=== PATIENT | male | born 1975 | race Caucasian/White ===

== ENCOUNTER 2020-02-18 20:45 | Emergency (ER) | payer SELFPAY ==
[2020-02-18] MEDS ORDERED: NALOXONE 2MG/2ML SYRINGE (J2310 PER 1MG) As Ordered ONE (20:59)
[2020-02-18] MEDS ORDERED: NALOXONE 2MG/2ML SYRINGE (J2310 PER 1MG) ONE (21:00)
== END 2020-02-18 21:10 | disposition home or self-care (01) ==
LOC: M ED 20:45
DX: F11.129 Opioid abuse with intoxication, unspecified (principal); F10.129 Alcohol abuse with intoxication, unspecified
CPT/HCPCS: 96374; 96376; 99284; J2310

== ENCOUNTER 2021-05-24 19:16 | Emergency (ER) | payer MEDICAID ==
[~2021-05-24] VITALS: Ht 162.6 cm; Wt 72.7 kg
--- OUTSIDE RECORDS SUMMARY | 2021-05-24 19:25 | CCD ---
Author Author [facility] Organization [facility] Address Unknown Phone Unavailable Care Team Providers Care R And D Lab Technician Name Role Phone Ayesha Pardo Unavailable PROBLEMS Type Condition ICD9-CM Code [id number] Code Onset Dates Condition S tatus W/U Status Risk SNOMED Code Notes Problem Psychophysiological insomnia F51.04 Active confirme d 942006436 Problem Onychomycosis B35.1 Active confirmed 186101 008 Problem Alcohol abuse F10.10 Active confirmed 562222 05 Problem Tinea pedis of both feet B35.3 Active confirmed 3679295 Problem Rash and nonspecific skin eruption R21 Active co nfirmed 705232758 Problem Hx of hepatitis C Z86.19 Active confirmed 93 [id number] Problem Pedal edema R60.0 Active confirmed 91040756 9 Problem Abdominal bloating R14.0 Active confirmed 1 [id number] ALLERGIES No Known Allergies ENCOUNTERS from 1977 to 2021-04-08 Encounter Location Date Provider Diagnosis [facility] [place] [address] [facility] [address] [phone] [place] [address] Mar, Sairasaurabh Starrah IMMUNIZATIONS No Information SOCIAL HISTORY Tobacco Use: Social History Observation Description Date Details (start date - stop date) Current Smoker Sex Assigned At : Social History Observation Description Sex Assigned At Unknown Education: Question Answer Notes Level of Education: Finished High School Language: Question Answer Notes Languages spoken: Australian Christianity: Question Answer Notes Christianity 08 Rastafarian Sexual Hx: Question Answer Notes Had sex in the last 12 months (vaginal, oral, or anal)? No Have you ever had an STD? No Alcohol Screening: Question Answer Notes Did you have a drink containing alcohol in the past year? Ye s Points 1 Interpretation Negative How many drinks did you have on a typica l day when you were drinking in the past year? 1 or 2 (0 points) How often did you have a drink containing alcohol in t he past year? Monthly or less (1 point) Tobacco Use: Question Answer Notes Are you a: current smoker REASON FOR REFERRAL No Information VITAL SIGNS No information MEDICATIONS Medication SIG (Take, Route, Frequency, Duration) Notes Start Da te End Date Status Abilify 5 MG 1 tablet Orally Once a day for 30 day(s) 04 2020 Active hydrOXYzine HCl 25 MG 1 tablet as needed for insomnia Orally qhs for 30 day(s) Active PROCEDURES No Information RESULTS No Results REASON FOR VISIT concerns for patient MEDICAL (GENERAL) HISTORY Type Description Date Medical History History of poly substance ab use with heroin, vicodin, cocaine, meth, 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 Medical History Hx hepatitis C spontaneous remission Medical History Tinea pedis Medical History Morgellons disease Surgical History No Surgical history information Goals Section No Information Health Concerns No Information MEDICAL EQUIPMENT No Information MENTAL STATUS No Information FUNCTIONAL STATUS No Information ASSESSMENTS No Information PLAN OF TREATMENT Medication Medication Name Sig Start Date Stop Date Abilify 5 MG 1 tablet Orally Once a day for 30 day(s) Apr, hydrOXYzine HCl 25 MG 1 tablet as needed for insomnia Orally qhs for 30 day(s) Next Appt Details Provider Name:Ayesha Pardo, 2020-10-2 8 07:30:00 AM, [address] [facility], , [place], [place], [facility], Insurance Providers Payer Name Payer Address Payer Phone Insured Name Patient Relati onship to Insured Coverage Start Date Coverage End Date [facility] [address] [facility] [phone] MARK ROBLES self
--- OUTSIDE RECORDS SUMMARY | 2021-05-24 19:25 | CCD ---
Author Author [facility] Organization [facility] Address Unknown Phone Unavailable Care Team Providers Care Assistant Designer Name Role Phone Ayesha Pardo Unavailable PROBLEMS Type Condition ICD9-CM Code [id number] Code Onset Dates Condition S tatus W/U Status Risk SNOMED Code Notes Problem Psychophysiological insomnia F51.04 Active confirme d 926133729 Problem Onychomycosis B35.1 Active confirmed 329047 008 Problem Alcohol abuse F10.10 Active confirmed 158436 05 Problem Tinea pedis of both feet B35.3 Active confirmed 1728303 Problem Rash and nonspecific skin eruption R21 Active co nfirmed 551990860 Problem Hx of hepatitis C Z86.19 Active confirmed 93 679806295397 Problem Pedal edema R60.0 Active confirmed 34690366 9 Problem Abdominal bloating R14.0 Active confirmed 1 [id number] ALLERGIES No Known Allergies ENCOUNTERS from 1975 to 2021-04-30 Encounter Location Date Provider Diagnosis [address] [phone] [place] [address] Apr, Sairasaurabh Starrah IMMUNIZATIONS No Information SOCIAL HISTORY Tobacco Use: Social History Observation Description Date Details (start date - stop date) Current Smoker Sex Assigned At : Social History Observation Description Sex Assigned At Unknown Education: Question Answer Notes Level of Education: Finished High School Language: Question Answer Notes Languages spoken: Mohawk Samaritan: Question Answer Notes Samaritan 08 Mosque Sexual Hx: Question Answer Notes Had sex [...] Once a day for 30 day(s) 04 O , 2020 Active hydrOXYzine HCl 25 MG 1 tablet as needed for insomnia Orally qhs for 30 day(s) Active PROCEDURES No Information RESULTS No Results REASON FOR VISIT ct scan MEDICAL (GENERAL) HISTORY Type Description Date Medical [...] day(s) Next Appt Details Provider Name:Ayesha Pardo, 2021-04-05 8 07:30:00 AM, [address] [place] [address], , [place], [address], Provider Name:Wanda Mccann, 2021-06-16 01 :30:00 PM, [address] [place] [address], , [place], [address], Insurance Providers Payer Name Payer Address Payer Phone Insured Name Patient Relati onship to Insured Coverage Start Date Coverage End Date [facility] [employer] [address] [facility] [phone] MARK ROBLES
--- OUTSIDE RECORDS SUMMARY | 2021-05-24 19:25 | CCD ---
Author Author [facility] Organization [facility] Address Unknown Phone Unavailable Care Team Providers Care Wood Craftsman Name Role Phone Ayesha Pardo Unavailable PROBLEMS Type Condition ICD9-CM Code BJB92-ES Code Onset Dates Condition S tatus W/U Status Risk SNOMED Code Notes Problem Psychophysiological insomnia F51.04 Active confirme d [id number] ALLERGIES No Known Allergies ENCOUNTERS from 1975 to 2021-04-01 Encounter Location Date Provider Diagnosis [facility] [address] [facility] [address] [phone] [place] [address] Mar, Sairalene Edvin IMMUNIZATIONS No Information SOCIAL HISTORY Tobacco Use: Social History Observation Description Date Details (start date - stop date) Current Smoker Sex Assigned At : Social History Observation Description Sex Assigned At Unknown Education: Question Answer Notes Level of Education: Finished High School Language: Question Answer Notes Languages spoken: Kyrgyz Advent: Question Answer Notes Advent 08 Jehovah'S Witness Sexual Hx: Question Answer Notes Had sex [...] Notes Start Da te End Date Status hydrOXYzine HCl 25 MG 1 tablet as needed for insomnia Orally qhs for 30 day(s) Mar, Active PROCEDURES No Information RESULTS No Results REASON FOR VISIT follow up MEDICAL (GENERAL) HISTORY Type Description Date Medical History History of poly substance ab use with heroin, vicodin, cocaine, meth, 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 Surgical History No Surgical history information Goals Section No Information Health Concerns No Information MEDICAL EQUIPMENT No Information MENTAL STATUS No Information FUNCTIONAL STATUS No Information ASSESSMENTS No Information PLAN OF TREATMENT Medication Medication Name Sig Start Date Stop Date hydrOXYzine HCl 25 MG 1 tablet as needed for insomnia Orally qhs for 30 day(s) Mar, Next Appt Details Provider Name:Ayesha Schultz Edvin, 2020-10-0 4 09:15:00 AM, [address] [place] [address], , [place], [place], [facility], Insurance Providers Payer Name Payer Address Payer Phone Insured Name Patient Relati onship to Insured Coverage Start Date Coverage End Date [facility]AN [facility] [address] [facility] [phone] MARK ROBLES self
--- OUTSIDE RECORDS SUMMARY | 2021-05-24 19:25 | CCD ---
Author Author [facility] Organization [facility] Address Unknown Phone Unavailable Care Team Providers Care Office Cashier Name Role Phone Ayesha Pardo Unavailable PROBLEMS Type Condition ICD9-CM Code [id number] Code Onset Dates Condition S tatus W/U Status Risk SNOMED Code Notes Problem Psychophysiological insomnia F51.04 Active confirme d 512384347 Problem Onychomycosis B35.1 Active confirmed 903884 008 Problem Alcohol abuse F10.10 Active confirmed 758451 05 Problem Tinea pedis of both feet B35.3 Active confirmed 0189795 Problem Rash and nonspecific skin eruption R21 Active co nfirmed 417035592 Problem Hx of hepatitis C Z86.19 Active confirmed 93 622645586635 Problem Pedal edema R60.0 Active confirmed 64758327 9 Problem Abdominal bloating R14.0 Active confirmed 1 91714389 ALLERGIES No Known Allergies ENCOUNTERS from 1977 to 2021-04-14 Encounter Location Date Provider Diagnosis [facility] [place] [address] [facility] [address] [phone] [place] [address] Apr, Sairasaurabh Starrah IMMUNIZATIONS No Information SOCIAL HISTORY Tobacco Use: Social History Observation Description Date Details (start date - stop date) Current Smoker Sex Assigned At : Social History Observation Description Sex Assigned At Unknown Education: Question Answer Notes Level of Education: Finished High School Language: Question Answer Notes Languages spoken: Martiniquais Pentecostal: Question Answer Notes Pentecostal 08 Hindu Sexual Hx: Question Answer Notes Had sex [...] Information RESULTS No Results REASON FOR VISIT No Information MEDICAL (GENERAL) HISTORY Type Description Date Medical [...] Name:Ayesha Pardo, 2020-10-2 8 07:30:00 AM, [address] [facility], , [place], [place], [facility], Insurance Providers Payer Name Payer Address Payer Phone Insured Name Patient Relati onship to Insured Coverage Start Date Coverage End Date [facility]AN [facility] [address] [facility] [phone] MARK ROBLES self
--- OUTSIDE RECORDS SUMMARY | 2021-05-24 19:25 | CCD ---
Author Author [facility] Organization [facility] Address Unknown Phone Unavailable Care Team Providers Care [place] Name Role Phone Antoine GREEN NP Unavailable Unavailable LAROCKAntoine NP Unavailable Unavailable LAROCKAntoine NP Unavailable Unavailable LAROCKAntoine NP Unavailable Unavailable LAROCKAntoine NP Unavailable Unavailable LAROCKAntoine NP Unavailable Unavailable LAROCKAntoine NP Unavailable Unavailable LAROCKAntoine NP Unavailable Unavailable LAROCKAntoine NP Unavailable Unavailable LAROCKAntoine NP Unavailable Unavailable LAROCKAntoine NP Unavailable Unavailable LAROCKAntoine NP Unavailable Unavailable LAROCKAntoine NP Unavailable Unavailable LAROCKAntoine NP Unavailable Unavailable LAROCKAntoine NP Unavailable Unavailable LAROCKAntoine NP Unavailable Unavailable LAROCKAntoine NP Unavailable Unavailable BHANUOCKAntoine NP Unavailable Unavailable BHANUOCKAntoine NP Unavailable Unavailable BHANUOCKAntoine NP Unavailable Unavailable BHANUOCKAntoine NP Unavailable Unavailable LAROCK, J MIKAELA POLICY DIRECTOR Unavailable Unavailable ANGELO, LISA PA Unavailable Unavailable ANGELO, LISA PA Unavailable Unavailable ANGELO, LISA PA Unavailable Unavailable ANGELO, LISA PA Unavailable Unavailable ANGELO, LISA PA Unavailable Unavailable ANGELO, LISA PA Unavailable Unavailable ANGELO, LISA PA Unavailable Unavailable ANGELO, LISA PA Unavailable Unavailable ANGELO, LISA PA Unavailable Unavailable ANGELO, LISA PA Unavailable Unavailable ANGELO, LISA PA Unavailable Unavailable ANGLEO, LISA PA Unavailable Unavailable ANGELO, LISA PA Unavailable Unavailable ANGELO, ILSA PA Unavailable Unavailable ANGELO, LISA PA Unavailable Unavailable ANGELO, LISA PA Unavailable Unavailable ANGELO, LISA PA Unavailable Unavailable ANGELO, LISA PA Unavailable Unavailable ANGELO, LSIA PA Unavailable Unavailable ANGELO, LISA PA Unavailable Unavailable ANGELO, LISA PA Unavailable Unavailable ANGELO, LISA PA Unavailable Unavailable ANGELO, LISA PA Unavailable Unavailable ANGELO, LISA PA Unavailable Unavailable ANGELO, LISA PA Unavailable Unavailable ANGELO, LISA PA Unavailable Unavailable ANGELO, LISA PA Unavailable Unavailable ANGELO, LISA PA Unavailable Unavailable ANGELO, LISA PA Unavailable Unavailable ANGELO, LISA PA Unavailable Unavailable ANGELO, LISA PA Unavailable Unavailable ANGELO, LISA PA Unavailable Unavailable ANGELO, LISA PA Unavailable Unavailable ANGELO, LISA PA Unavailable Unavailable ANGELO, LISA PA Unavailable Unavailable ANGELO, LISA PA Unavailable Unavailable Re-disclosure Warning The records that you are about to access may contain information from federally-assisted alcohol or drug abuse programs. If such information is present, then the following federally mandated warning applies: This information has been disclosed to you from records protected by federal confidentiality rules (42 CFR part 2). The federal rules prohibit you from making any further disclosure of this information unless further disclosure is expressly permitted by the written consent of the person to whom it pertains or as otherwise permitted by 42 CFR part 2. A general authorization for the release of medical or other information is NOT sufficient for this purpose. The Federal rules restrict any use of the information to criminally investigate or prosecute any alcohol or drug abuse patient.The records that you are about to access may contain highly sensitive health information, the redisclosure of which is protected by Article 27-F of the [place] State Public Health law. If you continue you may have access to information: Regarding HIV / AIDS; Provided by facilities licensed or operated by the [facility] Office of Mental Health; or Provided by the [facility] Office for People With Developmental Disabilities. If such information is present, then the following [facility] mandated warning applies: This information has been disclosed to you from confidential records which are protected by state law. State law prohibits you from making any further disclosure of this information without the specific written consent of the person to whom it pertains, or as otherwise permitted by law. Any unauthorized further disclosure in violation of state law may result in a fine or group home sentence or both. A general authorization for the release of medical or other information is NOT sufficient authorization for further disc losure. Family History Family Member Name Family Member Gender Family Member Status Date o f Status Description Data Source(s) Unknown Male Problem MEDENT ([facility], ) Encounters Encounter Providers Location Date Indications Data Source(s ) Unknown [address] [address] 05/14/2021 12:00:00 AM EST eCW1 ([facility]) Outpatient Attender: MIKAELA GREEN NP 04/05 08:12:14 AM EDT - 05/01/2021 08:46:08 AM EDT DocuTap ([facility] ) Unknown [address] [facility] [address] [address] 04/30/2021 12:00:00 AM EDT eCW1 ([facility]) Unknown [address] [facility] [place] [address] 04/09/2021 12:00:00 AM EDT eCW1 ([facility]) Outpatient [address] [address] 04/07/2021 12:00:00 AM EDT eCW1 ([facility]) Unknown [address] [address] [address] 04/07/2021 12:00:00 AM EDT eCW1 ([facility]) Unknown [address] [facility] [address] [address] 04/01/2021 12:00:00 AM EDT eCW1 ([facility]) [place] [address] [facility] [place] [address] 03/31/2021 12:00:00 AM EDT eCW1 ([facility]) [place] [address] [place] [address] 03/31/2021 12:00:00 AM EDT eCW1 ([facility]) Outpatient Attender: LISA slade 03/19/2021 06:35:00 PM EDT MEDENT ([facility]) Immunizations Vaccine Date Status Description Data Source(s) COVID-19 VACCINE Moderna 02/11/2021 12:00:00 AM EDT completed [facility] Vaccine Series Complete: YESThis Data wa s Submitted to [facility] [employer]. COVID-19 VACCINE Moderna 01/14/2021 12:00:00 AM EDT completed [facility] Vaccine Series Complete: NOThis Data was Submitted to [facility] [employer]. Medications Medication Brand Name Start Date Product Form Dose Route Admi nistrative Instructions Pharmacy Instructions Status Indications Reaction Description Data Source(s) aripiprazole 5 MG Oral Tablet [Abilify] Abilify 5 MG Abilify 5 MG 04/07/2021 12:00:00 AM EDT 1.0 {tablet} active Ab ilify 5 MG eCW1 ([facility]) aripiprazole 5 MG Oral Tablet [Abilify] Abilify 5 MG Abilify 5 MG 04/07/2021 12:00:00 AM EDT 1.0 {tablet} active Ab ilify 5 MG eCW1 ([facility]) aripiprazole 5 MG Oral Tablet [Abilify] Abilify 5 MG Abilify 5 MG 04/07/2021 12:00:00 AM EDT 1.0 {tablet} active Ab ilify 5 MG eCW1 ([facility]) aripiprazole 5 MG Oral Tablet [Abilify] Abilify 5 MG Abilify 5 MG 04/07/2021 12:00:00 AM EDT 1.0 {tablet} active Ab ilify 5 MG eCW1 ([facility]) aripiprazole 5 MG Oral Tablet [Abilify] Abilify 5 MG Abilify 5 MG 04/07/2021 12:00:00 AM EDT 1.0 {tablet} active Ab ilify 5 MG eCW1 ([facility]) aripiprazole 5 MG Oral Tablet [Abilify] Abilify 5 MG Abilify 5 MG 04/07/2021 12:00:00 AM EDT 1.0 {tablet} active Ab ilify 5 MG eCW1 ([facility]) aripiprazole 5 MG Oral Tablet [Abilify] Abilify 5 MG Abilify 5 MG 04/07/2021 12:00:00 AM EDT 1.0 {tablet} active Ab ilify 5 MG eCW1 ([facility]) Hydroxyzine Hydrochloride 25 MG Oral Tablet hydrOXYzin e HCl 25 MG hydrOXYzine HCl 25 MG 03/31/2021 12:00:00 AM EDT active hydrOXYzine HCl 25 MG eCW1 ([facility]) Insurance Providers Payer name Policy type / Coverage type Policy ID Covered constitution party ID Covered constitution party's relationship to bowers Policy Bowers Plan Information [place]ICAID [id number] [id number] [place] [id number] SP [id number] Y [facility]AN [facility] [id number] SP [id number] [facility] PLAN [facility] [id number] [facility] [employer] [id number] Self [id number] Medicaid Medicaid [id number] Self [id number] SELF PAY SP MEDICAID P [id number] S [id number] [place] Health Maintenance Organization (HMO) [id number] Self [id number] [facility](MCAID) P [id number] S [id number] [place] [id number] SP [id number] Y [facility] PLAN [facility] [id number] SP [id number] [facility] [id number] Problems, Conditions, and Diagnoses Code Display Name Description Problem Type Effective Dates Data Source(s) R14.0 [id number] Abdominal bloating Problem 04/07/2021 12:00: 00 AM EDT eCW1 ([facility]) R60.0 [id number] Pedal edema Problem 04/07/2021 12:00:00 AM E DT eCW1 ([facility]) Z86.19 [id number] Hx of hepatitis C Problem 04/07/2021 12: 00:00 AM EDT eCW1 ([facility]) R21 [id number] Rash and nonspecific skin eruption Proble m 04/07/2021 12:00:00 AM EDT eCW1 ([facility]) B35.3 [id number] Tinea pedis of both feet Problem 04/07/2021 12:00:00 AM EDT eCW1 ([facility]) F10.10 [id number] Alcohol abuse Problem 04/07/2021 12:00:00 AM EDT eCW1 ([facility]) B35.1 [id number] Onychomycosis Problem 04/07/2021 12:00:00 AM EDT eCW1 ([facility]) F51.04 [id number] Psychophysiological insomnia Problem 03/31/2021 12:00:00 AM EDT eCW1 ([facility]) Surgeries/Procedures Procedure Description Date Indications Data Source(s) OFFICE OUTPATIENT NEW 20 MINUTES 03/19/2021 12:00:00 A M EDT MEDENT ([facility] Results ID Date Data Source HEPC GLADYS 03/31/2021 12:00:00 AM EDT eCW1 ([facility]) Name Value Range Interpretation Code Description Data Cecilia rce(s) Supporting Document(s) Negative Negative HCV RNA GLADYS QUALITATIVE e CW1 ([facility]) ID Date Data Source [id number] 03/31/2021 12:00:00 AM EDT eCW1 ([facility]) Name Value Range Interpretation Code Description Data Cecilia rce(s) Supporting Document(s) HIV 1and2 ANTIBODY SCREEN eCW1 ([facility]) ID Date Data Source HEPATITIS C ANTIBODY INDEX 03/31/2021 12:00:00 AM EDT eCW1 ( [facility]) Name Value Range Interpretation Code Description Data Cecilia rce(s) Supporting Document(s) > 11.0 <0.8 HEPATITIS C VIRUS JING IND EX eCW1 ([facility]) ID Date Data Source Comprehensive Metabolic Profile (CMP) 03/31/2021 12:00:00 AM EDT eCW1 ([facility]) Name Value Range Interpretation Code Description Data Cecilia rce(s) Supporting Document(s) 17 7-18 BLOOD UREA NITROGEN eCW1 ([facility]) 130 70-100 GLUCOSE, FASTING eCW1 ([facility]) 139 136-145 SODIUM LEVEL eCW1 ([facility]) > 60.0 >60 GLOMERULAR FILTRATION RATE eCW 1 ([facility]) 0.92 0.70-1.30 CREATININE FOR GFR eCW1 ([facility]) 3.9 3.5-5.1 POTASSIUM SERUM eCW1 ([facility]) 30 21-32 CARBON DIOXIDE LEVEL eCW1 ([facility]) 104 98-107 CHLORIDE LEVEL eCW1 ([facility]) 9.3 8.5-10.1 CALCIUM LEVEL eCW1 ([facility]) 19 7-37 AST/SGOT eCW1 ([facility]) 48 12-78 ALT/SGPT eCW1 ([facility]) 98 45-117 ALKALINE PHOSPHATASE eCW1 ([facility]) 0.6 0.2-1.0 BILIRUBIN,TOTAL eCW1 ([facility]) 6.3 6.4-8.2 TOTAL PROTEIN eCW1 ([facility]) 3.6 3.2-5.2 ALBUMIN eCW1 ([facility]) 1.3 ALBUMIN/GLOBULIN RATIO eCW1 ([facility]) ID Date Data Source CBC with Differential 03/31/2021 12:00:00 AM EDT eCW1 ([facility]) Name Value Range Interpretation Code Description Data Cecilia rce(s) Supporting Document(s) 8.8 4.0-10.0 WHITE BLOOD COUNT eCW1 ([facility]) 5.31 4.30-6.10 RED BLOOD COUNT eCW1 ([facility]) 89.3 80.0-96.0 MEAN CORPUSCULAR VOLUME e CW1 ([facility]) 47.4 42.0-52.0 HEMATOCRIT eCW1 ([facility]) 15.8 13.5-17.5 HEMOGLOBIN eCW1 ([facility]) 29.8 27.0-33.0 MEAN CORPUSCULAR HEMOGLOB IN eCW1 ([facility]) 286 150-450 PLATELET COUNT, AUTOMATED eCW1 ([facility]) 33.3 32.0-36.5 MEAN CORPUSCULAR HGB CONC eCW1 ([facility]) 12.5 11.5-14.5 RED CELL DISTRIBUTION WID TH eCW1 ([facility]) 7.3 2.0-8.0 MONO % eCW1 ([facility]) 28.7 24.0-44.0 LYMPH % eCW1 ([facility]) 61.9 36.0-66.0 NEUTROPHILS % eCW1 ([facility]) 1.3 0.0-3.0 EOS % eCW1 ([facility]) 0.3 0.0-1.0 BASO % eCW1 ([facility]) 5.5 1.5-8.5 NEUTROPHILS # eCW1 ([facility]) 2.5 1.5-5.0 LYMPH # eCW1 ([facility]) 0.0 0.0-0.2 BASO # eCW1 ([facility]) 0.1 0.0-0.5 EOS # eCW1 ([facility]) 0.6 0.0-0.8 MONO # eCW1 ([facility]) Procedure Social History Code Duration Value Status Description Data Source(s ) Smoking 04/07/2021 12:00:00 AM EDT Current Smoker completed Curre nt Smoker eCW1 ([facility]) Smoking 04/07/2021 12:00:00 AM EDT Current Smoker completed Curre nt Smoker eCW1 ([facility]) Smoking 04/07/2021 12:00:00 AM EDT Current Smoker completed Curre nt Smoker eCW1 ([facility]) Smoking 04/07/2021 12:00:00 AM EDT Current Smoker completed Curre nt Smoker eCW1 ([facility]) Smoking 04/07/2021 12:00:00 AM EDT Current Smoker completed Curre nt Smoker eCW1 ([facility]) Smoking 04/07/2021 12:00:00 AM EDT Current Smoker completed Curre nt Smoker eCW1 ([facility]) Smoking 04/07/2021 12:00:00 AM EDT Current Smoker completed Curre nt Smoker eCW1 ([facility]) Smoking 03/31/2021 12:00:00 AM EDT Current Smoker completed Curre nt Smoker eCW1 ([facility]) Vital Signs ID Date Data Source UNK Name Value Range Interpretation Code Description Data Source(s) Body weight 159 [lb_av] 159 [lb_av] eCW1 ([facility]) Body weight 72.12 kg 72.12 kg eCW1 ([facility]) Body height 63 [in_i] 63 [in_i] eCW1 ([facility]) Body mass index (BMI) [Ratio] 28.16 kg/m2 28.16 kg/m2 eCW1 ([facility]) Heart rate 121 /min 121 /min eCW1 ([facility]) Respiratory rate 18 /min 18 /min eCW1 ([facility]) Body temperature 98.3 [degF] 98.3 [degF] eCW1 ( [facility]) Systolic blood pressure 136 mm[Hg] 136 mm[Hg] e CW1 ([facility]) Diastolic blood pressure 80 mm[Hg] 80 mm[Hg] eCW1 ([facility]) Body weight 159 [lb_av] 159 [lb_av] eCW1 ([facility]) Body weight 72.12 kg 72.12 kg eCW1 ([facility]) Body height 63 [in_i] 63 [in_i] eCW1 ([facility]) Body mass index (BMI) [Ratio] 28.16 kg/m2 28.16 kg/m2 eCW1 ([facility]) Heart rate 116 /min 116 /min eCW1 ([facility]) Respiratory rate 18 /min 18 /min eCW1 ([facility]) Body temperature 97.7 [degF] 97.7 [degF] eCW1 ( [facility]) Systolic blood pressure 132 mm[Hg] 132 mm[Hg] e CW1 ([facility]) Diastolic blood pressure 74 mm[Hg] 74 mm[Hg] eCW1 ([facility]) Systolic blood pressure 153 mm[Hg] 153 mm[Hg] M EDENT ([facility]) Heart rate 96 /min 96 /min MEDENT ([facility], [facility]) Oxygen saturation in Arterial blood by Pulse oximetry 99 % 99 % MEDENT ([facility], [facility]) Body temperature 98.6 [degF] 98.6 [degF] MEDENT ([facility], [facility]) Body weight 160.00 [lb_av] 160.00 [lb_av] MEDEN T ([facility], [facility]) Respiratory rate 14 /min 14 /min MEDENT ( [facility], [facility]) Body mass index (BMI) [Ratio] 28.3 kg/m2 28.3 k g/m2 MEDENT ([facility], [facility]) Body height 63 [in_i] 63 [in_i] MEDENT ([facility], [facility]) 5'3" Diastolic blood pressure 90 mm[Hg] 90 mm[Hg] MEDENT ([facility], [facility]) Patient Treatment Plan of Care Planned Activity Planned Date Details Description Data Source (s) aripiprazole 5 MG Oral Tablet [Abilify] 04/07/2021 12:00:00 AM EDT eCW1 ([facility]) aripiprazole 5 MG Oral Tablet [Abilify] 04/07/2021 12:00:00 AM EDT eCW1 ([facility]) aripiprazole 5 MG Oral Tablet [Abilify] 04/07/2021 12:00:00 AM EDT eCW1 ([facility]) aripiprazole 5 MG Oral Tablet [Abilify] 04/07/2021 12:00:00 AM EDT eCW1 ([facility]) aripiprazole 5 MG Oral Tablet [Abilify] 04/07/2021 12:00:00 AM EDT eCW1 ([facility]) aripiprazole 5 MG Oral Tablet [Abilify] 04/07/2021 12:00:00 AM EDT eCW1 ([facility]) aripiprazole 5 MG Oral Tablet [Abilify] 04/07/2021 12:00:00 AM EDT eCW1 ([facility]) Hydroxyzine Hydrochloride 25 MG Oral Tablet 03/31/2021 12:00:00 AM EDT eCW1 ([facility])
--- OUTSIDE RECORDS SUMMARY | 2021-05-24 19:25 | CCD | Continuity of Care Document ---
Author Author [facility] Organization Unknown Address [address] [place] [address] Phone [phone] Care Team Providers Care Ophthalmic Photographer Name Role Phone AaronAries mandujanoSierra GALICIAM [phone] Problems Description No Information Available Social History Type Date Description Comments Sex Unknown ETOH Use Occasionally consumes alcohol Tobacco Use Start: Unknown Patient is a current smoker, smo kes every day <1ppd x 20y Smoking Status Reviewed: 03/19/21 Patient is a current smoker, smokes every day <1ppd x 20y Allergies, Adverse Reactions, Alerts Description No Known Drug Allergies Medications Active Medications SIG Qnty Indications Ordering Provide r Date Suboxone 8-2mg Film 1 qam/1/2 qhs Unknown Immunizations Description No Information Available Vital Signs Date Vital Result Comment 03/19/2021 7:36pm BP Systolic 153 mmHg BP Diastolic 90 mmHg Heart Rate 96 /min Respiratory Rate 14 /min O2 % BldC Oximetry 99 % Body Temperature 98.6 F Weight 160.00 lb Height 63 inches 5'3" BMI (Body Mass Index) 28.3 kg/m2 Pain Level 0 11/18/2013 12:00pm BP Systolic 142 mmHg BP Diastolic 81 mmHg Heart Rate 88 /min Respiratory Rate 20 /min O2 % BldC Oximetry 98 % Body Temperature 99.0 F Weight 140.00 lb Height 63 inches 5'3" BMI (Body Mass Index) 24.8 kg/m2 Pain Level 6 Results Description No Information Available Procedures Description No Information Available Medical Devices Description No Information Available Encounters Description No Information Available Assessments Description No Information Available Plan of Treatment No Information Available Functional Status Description No Information Available Mental Status Description No Information Available Referrals Description No Information Available
--- OUTSIDE RECORDS SUMMARY | 2021-05-24 19:25 | CCD ---
Author Author [facility] Organization [facility] Address Unknown Phone Unavailable Care Team Providers Care Muffler Installer Name Role Phone Ayesha Pardo Unavailable PROBLEMS Type Condition ICD9-CM Code TRQ18-DG Code Onset Dates Condition S tatus W/U Status Risk SNOMED Code Notes Problem Psychophysiological insomnia F51.04 Active confirme d 676203681 Problem Onychomycosis B35.1 Active confirmed 002700 008 Problem Alcohol abuse F10.10 Active confirmed 343909 05 Problem Tinea pedis of both feet B35.3 Active confirmed 0916049 Problem Rash and nonspecific skin eruption R21 Active co nfirmed 254676789 Problem Hx of hepatitis C Z86.19 Active confirmed 93 [id number] Problem Pedal edema R60.0 Active confirmed 60981923 9 Problem Abdominal bloating R14.0 Active confirmed 1 [id number] ALLERGIES No Known Allergies ENCOUNTERS from 1975 to 2021-04-14 Encounter Location Date Provider Diagnosis [facility] [address] [facility] [phone] [place] [id number] 04 Apr, 2021 Ayesha Pardo Rash and nonspecific skin eruption R21 ; Tinea pedis of both feet B35.3 ; Onychomycosis B35.1 ; Psychophysiological insomnia F51.04 ; Hx of hepatitis C Z86.19 ; Alcohol abuse F10.10 ; Pedal edema R60.0 and Abdominal bloating R14.0 IMMUNIZATIONS No Information SOCIAL HISTORY Tobacco Use: Social History Observation Description Date Details (start date - stop date) Current Smoker Sex Assigned At : Social History Observation Description Sex Assigned At Unknown Education: Question Answer Notes Level of Education: Finished High School Language: Question Answer Notes Languages spoken: Swiss Baptist: Question Answer Notes Baptist 08 Taoism Sexual Hx: Question Answer Notes Had sex [...] REASON FOR REFERRAL No Information VITAL SIGNS Weight 159 lbs Apr, Weight-kg 72.12 kg Apr, Height 63 in Apr, BMI 28.16 kg/m2 Apr, Heart Rate 121 /min Apr, Respiratory Rate 18 /min Apr, Temperature 98.3 degrees Fahrenheit Apr, Oximetry 94 Apr, Blood pressure systolic 136 mm Hg Apr, Blood pressure diastolic 80 mm Hg Apr, MEDICATIONS Medication SIG (Take, Route, Frequency, Duration) Notes Start Da te End Date Status Abilify 5 MG 1 tablet Orally Once a day for 30 day(s) 2020 Active hydrOXYzine HCl 25 MG 1 tablet as needed for insomnia Orally qhs for 30 day(s) Active PROCEDURES No Information RESULTS No Results REASON FOR VISIT 1 week MEDICAL (GENERAL) HISTORY Type Description Date Medical [...] No Information FUNCTIONAL STATUS No Information ASSESSMENTS Encounter Date Diagnosis Assessment Notes Treatment Notes Treatm ent Clinical Notes Apr, Rash and nonspecific skin eruption (ICD-10 - R21 ) Likely delusions of parasitosis causing the sensation on his skin, although he does have a rash faint erythematous on abdomen and lower extremities but he also has pitting edema. Apr, Tinea pedis of both feet (ICD-10 - B35.3) Patient using titm-yhl-brzvect Lotrimin spray between the toes with effect Apr, Onychomycosis (ICD-10 - B35.1) He is using Lotrimin spray between his toes with marked improvement of tinea pedis not being treated for onychomycosis, Apr, Psychophysiological insomnia (ICD-10 - F51.04) Related to anxiety over his symptoms tried hydroxyzine at night for insomonia according to patient did not help but his sister thinks is calmed him down Apr, Hx of hepatitis C (ICD-10 - Z86.19) She does not recall a history of hepatitis C diagnosis but he has a history of IV drug abuse quit over 4 years ago. He used to follow-up with Dr. Lindsey but had never been diagnosed with hep C Apr, Alcohol abuse (ICD-10 - F10.10) He was advised to go to addiction and mental health for appointment to be treated for his anxiety disorder and that should help with his delusion of parasitosis and alcohol use. Patient was not interested at this time. Apr, Pedal edema (ICD-10 - R60.0) Patient has pitting edema at the end of the day with bloating I am concerned about liver cirrhosis even though his liver function test have been normal. Patient has a history of heavy alcohol abuse up to 30 beers a night now he is down to 12 beers a night. Patient was advised to completely discontinue alcohol use. Apr, Abdominal bloating (ICD-10 - R14.0) Apr, Other He was also giv en a work slip regarding the fact that he is followed up at this office, and that he does not have any infectious disease that would be contagious to any of his coworkers PLAN OF TREATMENT Medication Medication Name Sig Start Date Stop Date Abilify 5 MG 1 tablet Orally Once a day for 30 day(s) Apr, hydrOXYzine HCl 25 MG 1 tablet as needed for insomnia Orally qhs for 30 day(s) Treatment Notes Assessment Notes Clinical Notes Rash and nonspecific skin eruption Likel y delusions of parasitosis causing the sensation on his skin, although he does have a rash faint erythematous on abdomen and lower extremities but he also has pitting edema. Tinea pedis of both feet Patient using o xhc-orc-hqsjksc Lotrimin spray between the toes with effect Onychomycosis He is using Lotrimin spray between his toes with marked improvement of tinea pedis not being treated for onychomycosis, Psychophysiological insomnia Related to anxiety over his symptoms tried hydroxyzine at night for insomonia according to patient did not help but his sister thinks is calmed him down Hx of hepatitis C She does not recall a history of hepatitis C diagnosis but he has a history of IV drug abuse quit over 4 years ago. He used to follow-up with Dr. Lindsey but had never been diagnosed with hep C Alcohol abuse He was advised to go to addiction and mental health for appointment to be treated for his anxiety disorder and that should help with his delusion of parasitosis and alcohol use. Patient was not interested at this time. Pedal edema Patient has pitting edema at the end of the day with bloating I am concerned about liver cirrhosis even though his liver function test have been normal. Patient has a history of heavy alcohol abuse up to 30 beers a night now he is down to 12 beers a night. Patient was advised to completely discontinue alcohol use. Treatment Notes Test Name Order Date HEPATITIS B SURFACE ANTIBODY 2021-04-07 DRUG EVAL TOXICOLOGY REHAB 2021-04-07 HEPATITIS A IgG 2021-04-07 HEPATITIS B SURFACE ANTIGEN 2021-04-07 HEPATITIS B CORE ANTIBODY IGG 2021-04-07 HEPATITIS C FIBROSURE [id number] 2021-04-07 FERRITIN 2021-04-07 TOTAL IRON BINDING CAPACIT 2021-04-07 IRON (FE) 2021-04-07 CT ABD & Pelvis w/o Contrast 2021-04-07 Next Appt Details 3 Weeks, needs appt with Bri reaves Reason: Provider Name:Ayesha Pardo, 2021-04-05 8 07:30:00 AM, [address] [facility], , [place], [address], Insurance Providers Payer Name Payer Address Payer Phone Insured Name Patient Relati onship to Insured Coverage Start Date Coverage End Date [facility] [employer] [address] [facility] [phone] MARK ROBLES self
--- OUTSIDE RECORDS SUMMARY | 2021-05-24 19:25 | CCD ---
Author Author [facility] Organization [facility] Address Unknown Phone Unavailable Care Team Providers Care Design Engineer Marine Equipment Name Role Phone Ayesha Pardo Unavailable PROBLEMS Type Condition ICD9-CM Code [id number] Code Onset Dates Condition S tatus W/U Status Risk SNOMED Code Notes Problem Psychophysiological insomnia F51.04 Active confirme d 036659147 Problem Onychomycosis B35.1 Active confirmed 149686 008 Problem Alcohol abuse F10.10 Active confirmed 644682 05 Problem Tinea pedis of both feet B35.3 Active confirmed 2591056 Problem Rash and nonspecific skin eruption R21 Active co nfirmed 162964547 Problem Hx of hepatitis C Z86.19 Active confirmed 93 513050316485 Problem Pedal edema R60.0 Active confirmed 93308019 9 Problem Abdominal bloating R14.0 Active confirmed 1 52236017 ALLERGIES No Known Allergies ENCOUNTERS from 1975 to 2021-05-17 Encounter Location Date Provider Diagnosis [address] [phone] [place] [address] May, Sairasaurabh Starrah IMMUNIZATIONS No Information SOCIAL HISTORY Tobacco Use: Social History Observation Description Date Details (start date - stop date) Current Smoker Sex Assigned At : Social History Observation Description Sex Assigned At Unknown Education: Question Answer Notes Level of Education: Finished High School Language: Question Answer Notes Languages spoken: Latvian Orthodoxy: Question Answer Notes Orthodoxy 08 Rastafarian Sexual Hx: Question Answer Notes [...] Information RESULTS No Results REASON FOR VISIT bug bite/difficulty breathing/swollen tongue MEDICAL (GENERAL) HISTORY Type Description Date Medical [...] for 30 day(s) Next Appt Details Provider Name:Wanda Chen, 2021-06-16 01 :30:00 PM, [address] [facility], , [place], [address],
--- OUTSIDE RECORDS SUMMARY | 2021-05-24 19:25 | CCD ---
Author Author [facility] Organization [facility] Address Unknown Phone Unavailable Care Team Providers Care Delinquency Prevention Social Worker Name Role Phone Ayesha Pardo Unavailable PROBLEMS Type Condition ICD9-CM Code TCH44-AR Code Onset Dates Condition S tatus W/U Status Risk SNOMED Code Notes Problem Psychophysiological insomnia F51.04 Active confirme d 564347955 Problem Onychomycosis B35.1 Active confirmed 865122 008 Problem Alcohol abuse F10.10 Active confirmed 302957 05 Problem Tinea pedis of both feet B35.3 Active confirmed 9121932 Problem Rash and nonspecific skin eruption R21 Active co nfirmed 292712180 Problem Hx of hepatitis C Z86.19 Active confirmed 93 206436849782 Problem Pedal edema R60.0 Active confirmed 05530345 9 Problem Abdominal bloating R14.0 Active confirmed 1 61422112 ALLERGIES No Known Allergies ENCOUNTERS from 1975 to 2021-04-10 Encounter Location Date Provider Diagnosis [address] [phone] [place] [address] Apr, Sairasaurabh Starrah IMMUNIZATIONS No Information SOCIAL HISTORY Tobacco Use: Social History Observation Description Date Details (start date - stop date) Current Smoker Sex Assigned At : Social History Observation Description Sex Assigned At Unknown Education: Question Answer Notes Level of Education: Finished High School Language: Question Answer Notes Languages spoken: Mohawk Faith: Question Answer Notes Faith 08 Islam Sexual Hx: Question Answer Notes Had sex [...] Information RESULTS No Results REASON FOR VISIT medication question MEDICAL (GENERAL) HISTORY Type Description Date Medical [...] 30 day(s) Next Appt Details Provider Name:Ayesha Schultz Edvin, 2020-10-2 8 07:30:00 AM, [address] [place] [address], [place], [place], [facility], Insurance Providers Payer Name Payer Address Payer Phone Insured Name Patient Relati onship to Insured Coverage Start Date Coverage End Date [facility] [address] [facility] [phone] MARK ROBLES self
--- OUTSIDE RECORDS SUMMARY | 2021-05-24 19:25 | CCD ---
Author Author [facility] Organization [facility] Address Unknown Phone Unavailable Care Team Providers Care Sourcing Analyst Name Role Phone Ayesha Pardo Unavailable PROBLEMS Type Condition ICD9-CM Code QNG31-VP Code Onset Dates Condition S tatus W/U Status Risk SNOMED Code Notes Problem Psychophysiological insomnia F51.04 Active confirme d 034816279 Problem Onychomycosis B35.1 Active confirmed 465673 008 Problem Alcohol abuse F10.10 Active confirmed 982398 05 Problem Tinea pedis of both feet B35.3 Active confirmed 2694430 Problem Rash and nonspecific skin eruption R21 Active co nfirmed 220620195 Problem Hx of hepatitis C Z86.19 Active confirmed 93 536937984668 Problem Pedal edema R60.0 Active confirmed 08484401 9 Problem Abdominal bloating R14.0 Active confirmed 1 93256073 ALLERGIES No Known Allergies ENCOUNTERS from 1975 to 2021-04-14 Encounter Location Date Provider Diagnosis [facility] [place] [address] [facility] [phone] [place] [address] Mar, Ayesha Pardo Rash and nonspecific skin eruption R21 ; Tinea pedis of both feet B35.3 ; Onychomycosis B35.1 and Psychophysiological insomnia F51.04 IMMUNIZATIONS No Information SOCIAL HISTORY Tobacco Use: Social History Observation Description Date Details (start date - stop date) Current Smoker Sex Assigned At : Social History Observation Description Sex Assigned At Unknown Education: Question Answer Notes Level of Education: Finished High School Language: Question Answer Notes Languages spoken: Yi Buddhism: Question Answer Notes Buddhism 08 Protestant Sexual Hx: Question Answer Notes Had sex [...] you a: current smoker REASON FOR REFERRAL from 1975 to 2021-04-14 Reason Skin erruption on legs, abdo men Diagnosis 1 Rash and nonspecific skin er uption (R21) Diagnosis 2 Onychomycosis (B35.1) Diagnosis 3 Tinea pedis of both feet (B3 5.3) Referral Organization [facility] Infectious Disease [place] Referring Provider First Name Sairasaurabh Referring Provider Last Name Edvin Referring Provider Specialty Infectious Disease Referred Organization [facility] Dermatology Referred Provider [facility],Dermatology Referred Address [address] [place] [phone],[place], [place],[address] Referred Provider Specialty Dermatology Referral Priority Routine VITAL SIGNS Weight 159 lbs Mar, Weight-kg 72.12 kg Mar, Height 63 in Mar, BMI 28.16 kg/m2 Mar, Heart Rate 116 /min Mar, Respiratory Rate 18 /min Mar, Temperature 97.7 degrees Fahrenheit Mar, Oximetry 99% Mar, Blood pressure systolic 132 mm Hg Mar, Blood pressure diastolic 74 mm Hg Mar, MEDICATIONS Medication SIG (Take, Route, Frequency, Duration) Notes Start Da te End Date Status Abilify 5 MG 1 tablet Orally Once a day for 30 day(s) 04 O 2020 Active hydrOXYzine HCl 25 MG 1 tablet as needed for insomnia Orally qhs for 30 day(s) Active PROCEDURES No Information RESULTS Component Value Reference Range CBC with Differential Reviewed date:03/31/2021 14:20:55 Interpretation: Performing Lab:[facility], [facility] [address] [facility] [address] , ,[place] [address] WHITE BLOOD COUNT 8.8 4.0-10.0 RED BLOOD COUNT 5.31 4.30-6.10 HEMOGLOBIN 15.8 13.5-17.5 HEMATOCRIT 47.4 42.0-52.0 MEAN CORPUSCULAR VOLUME 89.3 80.0-96.0 MEAN CORPUSCULAR HEMOGLOBIN 29.8 27.0-33.0 MEAN CORPUSCULAR HGB CONC 33.3 32.0-36.5 RED CELL DISTRIBUTION WIDTH 12.5 11.5-14.5 PLATELET COUNT, AUTOMATED 286 150-450 NEUTROPHILS % 61.9 36.0-66.0 LYMPH % 28.7 24.0-44.0 MONO % 7.3 2.0-8.0 EOS % 1.3 0.0-3.0 BASO % 0.3 0.0-1.0 NEUTROPHILS # 5.5 1.5-8.5 LYMPH # 2.5 1.5-5.0 MONO # 0.6 0.0-0.8 EOS # 0.1 0.0-0.5 BASO # 0.0 0.0-0.2 Comprehensive Metabolic Profile (CMP) Reviewed date:03/31/2021 14:20:55 Interpretation: Performing Lab:[facility] [address] [facility] [address] , ,[facility] GLUCOSE, FASTING 130 70-100 BLOOD UREA NITROGEN 17 7-18 CREATININE FOR GFR 0.92 0.70-1.30 GLOMERULAR FILTRATION RATE > 60.0 >60 SODIUM LEVEL 139 136-145 POTASSIUM SERUM 3.9 3.5-5.1 CHLORIDE LEVEL 104 98-107 CARBON DIOXIDE LEVEL 30 21-32 CALCIUM LEVEL 9.3 8.5-10.1 AST/SGOT 19 7-37 ALT/SGPT 48 12-78 ALKALINE PHOSPHATASE 98 45-117 BILIRUBIN,TOTAL 0.6 0.2-1.0 TOTAL PROTEIN 6.3 6.4-8.2 ALBUMIN 3.6 3.2-5.2 ALBUMIN/GLOBULIN RATIO 1.3 HEPATITIS C ANTIBODY INDEX Reviewed date:03/31/2021 14:20:55 Interpretation: Performing Lab:[facility] [address] [facility] [address] , ,[facility]01 HEPATITIS C VIRUS JING INDEX > 11.0 <0.8 HIV 1and2 ANTIBODY SCREEN Reviewed date:03/31/2021 14:20:55 Interpretation: Performing Lab:[facility], [facility] [address] [facility] [address] , ,[place] [address] [facility] Reviewed date:04/03/2021 16:56:30 Interpretation: Performing Lab:[facility], [facility] [address] [facility] [address] , ,[place] [address] HCV RNA GLADYS QUALITATIVE Negative Negative REASON FOR VISIT parasitic infection MEDICAL (GENERAL) HISTORY Type Description Date Medical [...] Notes Treatment Notes Treatm ent Clinical Notes Mar, Rash and nonspecific skin eruption (ICD-10 - R21 ) Likely delusions of parasitosis causing the sensation on his skin, although he does have a rash. Will check labs to rule out other processes as the patient does not have recent lab work. Check stool for parasites. Given history of drug use with check HIV and Hep C. Follow up 1 week with results. Mar, Tinea pedis of both feet (ICD-10 - B35.3) Mar, Onychomycosis (ICD-10 - B35.1) Mar, Psychophysiological insomnia (ICD-10 - F51.04) Related to anxiety over his symptoms. Will try hydroxyzine at night for insomonia. PLAN OF TREATMENT Medication Medication Name Sig [...] his skin, although he does have a rash. Will check labs to rule out other processes as the patient does not have recent lab work. Check stool for parasites. Given history of drug use with check HIV and Hep C. Follow up 1 week with results. Psychophysiological insomnia Related to anxiety over his symptoms. Will try hydroxyzine at night for insomonia. Treatment Notes Test Name Order Date GASTROINTESTINAL GI PANEL (GIPANEL) 2021-03-31 Referrals Referral Date Details Skin erruption on legs, last cano, Dermatology [facility], [address] [place], [address], Next Appt Details 1 Week Reason:lab results Provider Name:Ayesha Pardo, 2021-04-05 8 07:30:00 AM, [address] [facility], , [place], [address], Follow Up:1 Weeklab results Insurance Providers Payer Name Payer Address Payer Phone Insured Name Patient Relati onship to Insured Coverage Start Date Coverage End Date [facility] [address] [facility] [phone] MARK ROBLES self
--- OUTSIDE RECORDS SUMMARY | 2021-05-24 19:25 | CCD | Continuity of Care Document ---
Author Author [facility] Organization Unknown Address [address] [place] [address] Phone [phone] Care Team Providers Care Window Shade Installer Name Role Phone Aries LindseySierra GALICIAM [phone] Problems Description No Information Available Social History [...] 6 Results Description No Information Available Procedures Date Code Description Status 03/19/2021 359[address] Office/Outpatient [facility] 15- 29 Minutes Completed Medical Devices Description No Information Available Encounters Type Date Location Provider Dx Diagnosis Office Visit 03/19/2021 6:35p Main Office Trice Russo R2 1 Rash and other nonspecific skin eruption Assessments Date Code Description Provider 03/19/2021 R21 Rash and other nonspecific skin eruption Trice Russo Plan of Treatment No Information Available Functional Status Description No Information Available Mental Status Description No Information Available Referrals Description No Information Available
[2021-05-24] MEDS ORDERED: GI COCKTAIL 50ML BTL(HYOSCYAMINE/MAALOX/LIDOCAINE VISCOUS)(1:3:1) PO ONE (20:05)
[2021-05-24 21:18] LABS: BASO # 0.1 10^3/uL (0.0-0.2); BASO % 0.5 % (0.0-1.0); EOS # 0.1 10^3/uL (0.0-0.5); EOS % 1.2 % (0.0-3.0); HEMATOCRIT 50.2 % (42.0-52.0); HEMOGLOBIN 16.8 g/dl (13.5-17.5); LYMPH # 1.9 10^3/uL (1.5-5.0); LYMPH % 18.8 % (24.0-44.0); MEAN CORPUSCULAR HEMOGLOBIN 29.4 pg (27.0-33.0); MEAN CORPUSCULAR HGB CONC 33.5 g/dl (32.0-36.5); MEAN CORPUSCULAR VOLUME 87.8 fl (80.0-96.0); MONO # 0.6 10^3/uL (0.0-0.8); MONO % 6.3 % (2.0-8.0); NEUTROPHILS # 7.5 10^3/uL (1.5-8.5); NEUTROPHILS % 72.7 % (36.0-66.0); PLATELET COUNT, AUTOMATED 282 10^3/uL (150-450); RED BLOOD COUNT 5.72 10^6/uL (4.30-6.10); WHITE BLOOD COUNT 10.2 10^3/uL (4.0-10.0)
[2021-05-24 21:29] LABS: INR 0.91; PARTIAL THROMBOPLASTIN TIME 28.1 SECONDS (25.9-37.0); PROTHROMBIN TIME 12.6 SECONDS (12.7-14.5)
--- OUTSIDE RECORDS SUMMARY | 2021-05-24 21:30 | CCD ---
Author Author [facility] Organization [facility] Address Unknown Phone Unavailable Care Team Providers Care [employer] Name Role Phone Antoine GREEN NP Unavailable [...] NP Unavailable Unavailable BHANUOCKAntoine NP Unavailable Unavailable LAROCKAntoine NP Unavailable Unavailable BHANUOCKAntoine NP Unavailable Unavailable LAROCK, J MIKAELA [employer] SUPERVISOR Unavailable Unavailable LAROCK, Antoine AL [employer] SUPERVISOR Unavailable Unavailable ANGELO, LISA PA Unavailable Unavailable [...] is protected by Article 27-F of the [facility] Public Health law. If you continue you may have access to information: Regarding HIV / AIDS; Provided by facilities licensed or operated by the [facility] Office of Mental Health; or Provided by the [facility] Office for People With Developmental Disabilities. If such information is present, then the following [facility] mandated warning applies: This information has [...] law may result in a fine or skilled nursing sentence or both. A general authorization for the release of medical or other information is NOT sufficient authorization for further disc losure. Family History Family Member Name Family Member Gender Family Member Status Date o f Status Description Data Source(s) Unknown Male Problem MEDENT ([facility], ) Encounters Encounter Providers Location Date Indications Data Source(s ) [place] [address] [address] 05/14/2021 12:00:00 AM EST eCW1 ([facility]) Outpatient Attender: MIKAELA GREEN NP 04/05 08:12:14 AM EDT - 05/01/2021 08:46:08 AM EDT DocuTap ([facility] ) [place] [address] [place] [address] 04/30/2021 12:00:00 AM EDT eCW1 ([facility]) Unknown [address] [place] [address] 04/09/2021 12:00:00 AM EDT eCW1 ([facility]) Outpatient [address] [place] [address] 04/07/2021 12:00:00 AM EDT eCW1 ([facility]) Unknown [address] [place] [address] 04/07/2021 12:00:00 AM EDT eCW1 ([facility]) [place] [address] [address] 04/01/2021 12:00:00 AM EDT eCW1 ([facility]) [place] [address] [address] 03/31/2021 12:00:00 AM EDT eCW1 ([facility]) [place] [address] [address] 03/31/2021 12:00:00 AM EDT eCW1 ([facility]) Outpatient Attender: LISA Coughlin Prima ry 03/19/2021 06:35:00 PM EDT MEDENT ([facility]) Immunizations Vaccine Date Status Description Data Source(s) COVID-19 VACCINE Moderna 02/11/2021 12:00:00 AM EDT completed [facility]IS Vaccine Series Complete: YESThis Data wa s Submitted to [facility]. COVID-19 VACCINE Moderna 01/14/2021 12:00:00 AM EDT completed [place]IS Vaccine Series Complete: NOThis Data was Submitted to [facility] [employer]. Medications Medication Brand Name Start Date Product Form Dose Route Admi nistrative Instructions Pharmacy Instructions Status Indications Reaction Description Data Source(s) aripiprazole 5 MG Oral Tablet [Abilify] Abilify 5 MG Abilify 5 MG 04/07/2021 12:00:00 AM EDT 1.0 {tablet} active Ab ilify 5 MG eCW1 ([facility]) aripiprazole 5 MG Oral Tablet [Abilify] Abilify 5 MG Abilify 5 MG 04/07/2021 12:00:00 AM EDT 1.0 {tablet} active Ab ilify 5 MG eCW1 ([facility]) aripiprazole 5 MG Oral Tablet [Abilify] Abilify 5 MG Abilify 5 MG 04/07/2021 12:00:00 AM EDT 1.0 {tablet} active Ab ilify 5 MG eCW1 ([facility]) aripiprazole 5 MG Oral Tablet [Abilify] Abilify 5 MG Abilify 5 MG 04/07/2021 12:00:00 AM EDT 1.0 {tablet} active Ab ilify 5 MG eCW1 ([facility]) aripiprazole 5 MG Oral Tablet [Abilify] Abilify 5 MG Abilify 5 MG 04/07/2021 12:00:00 AM EDT 1.0 {tablet} active Ab ilify 5 MG eCW1 ([facility]) aripiprazole 5 MG Oral Tablet [Abilify] Abilify 5 MG Abilify 5 MG 04/07/2021 12:00:00 AM EDT 1.0 {tablet} active Ab ilify 5 MG eCW1 ([facility]) aripiprazole 5 MG Oral Tablet [Abilify] Abilify 5 MG Abilify 5 MG 04/07/2021 12:00:00 AM EDT 1.0 {tablet} active Ab ilify 5 MG eCW1 ([facility]) Hydroxyzine Hydrochloride 25 MG Oral Tablet hydrOXYzin e HCl 25 MG hydrOXYzine HCl 25 MG 03/31/2021 12:00:00 AM EDT active hydrOXYzine HCl 25 MG eCW1 ([facility]) Insurance Providers Payer name Policy type / Coverage type Policy ID Covered constitution party ID Covered constitution party's relationship to bowers Policy Bowers Plan Information MEDICAID [id number] [place] [id number] [place] [id number] SP [id number] Y [facility] COMMUNITY PLAN [facility] [id number] SP [id number] [facility] COMMUN[facility] [employer]AN [facility] [id number] SP [id number] Medicaid Medicaid [id number] Self [id number] [facility] Commercial [employer]. [id number] Self [id number] [facility] COMMUNITY PLAN [facility] [id number] SP [id number] [place] [id number] SP [id number] MEDICAID P [id number] S [id number] [facility] COMMUNITY PLAN [facility] [id number] SP [id number] [facility] Health Maintenance Organization (HMO) [id number] Self [id number] [facility] P [id number] S [id number] SELF [place]Y SP [place] [id number] SP [id number] Y Problems, Conditions, and Diagnoses Code Display Name Description Problem Type Effective Dates Data Source(s) R14.0 [id number] Abdominal bloating Problem 04/07/2021 12:00: 00 AM EDT eCW1 ([facility]) R60.0 [id number] Pedal edema Problem 04/07/2021 12:00:00 AM E DT eCW1 ([facility]) Z86.19 [id number] Hx of hepatitis C Problem 04/07/2021 12: 00:00 AM EDT eCW1 ([facility]) R21 [id number] Rash and nonspecific skin eruption Proble m 04/07/2021 12:00:00 AM EDT eCW1 ([facility]) B35.3 [id number] Tinea pedis of both feet Problem 04/07/2021 12:00:00 AM EDT eCW1 ([facility]) F10.10 [id number] Alcohol abuse Problem 04/07/2021 12:00:00 AM EDT eCW1 ([facility]) B35.1 [id number] Onychomycosis Problem 04/07/2021 12:00:00 AM EDT eCW1 ([facility]) F51.04 [id number] Psychophysiological insomnia Problem 03/31/2021 12:00:00 AM EDT eCW1 ([facility]) Surgeries/Procedures Procedure Description Date Indications Data Source(s) OFFICE OUTPATIENT NEW 20 MINUTES 03/19/2021 12:00:00 A M EDT MEDENT ([facility]) Results ID Date Data Source [facility] GLADYS 03/31/2021 12:00:00 AM EDT eCW1 ([facility]) Name Value Range Interpretation Code Description Data Cecilia rce(s) Supporting Document(s) Negative Negative HCV RNA GLADYS QUALITATIVE e CW1 ([facility]) ID Date Data Source [id number] 03/31/2021 12:00:00 AM EDT eCW1 ([facility]) Name Value Range Interpretation Code Description Data Cecilia rce(s) Supporting Document(s) HIV 1and2 ANTIBODY SCREEN eCW1 ([facility]) ID Date Data Source HEPATITIS C ANTIBODY INDEX 03/31/2021 12:00:00 AM EDT eCW1 ( [facility]) Name Value Range Interpretation Code Description Data Cecilia rce(s) Supporting Document(s) > 11.0 <0.8 HEPATITIS C VIRUS JING IND EX eCW1 ([facility]) ID Date Data Source Comprehensive Metabolic Profile (CMP) 03/31/2021 12:00:00 AM EDT eCW1 ([facility]) Name Value Range Interpretation Code Description Data Cecilia rce(s) Supporting Document(s) 17 7-18 BLOOD UREA NITROGEN eCW1 ([facility]) 130 70-100 GLUCOSE, FASTING eCW1 ([facility]) 139 136-145 SODIUM LEVEL eCW1 ([facility]) > 60.0 >60 GLOMERULAR FILTRATION RATE eCW 1 ([facility]) 0.92 0.70-1.30 CREATININE FOR GFR eCW1 ([facility]) 3.9 3.5-5.1 POTASSIUM SERUM eCW1 ([facility]) 30 21-32 CARBON DIOXIDE LEVEL eCW1 ([facility]) 104 98-107 CHLORIDE LEVEL eCW1 ([facility]) 9.3 8.5-10.1 CALCIUM LEVEL eCW1 ([facility]) 19 7-37 AST/SGOT eCW1 ([facility]) 48 12-78 ALT/SGPT eCW1 ([facility]) 98 45-117 ALKALINE PHOSPHATASE eCW1 ([facility]) 0.6 0.2-1.0 BILIRUBIN,TOTAL eCW1 ([facility]) 6.3 6.4-8.2 TOTAL PROTEIN eCW1 ([facility]) 3.6 3.2-5.2 ALBUMIN eCW1 ([facility]) 1.3 ALBUMIN/GLOBULIN RATIO eCW1 ([facility]) ID Date Data Source CBC with Differential 03/31/2021 12:00:00 AM EDT eCW1 ([facility]) Name Value Range Interpretation Code Description Data Cecilia rce(s) Supporting Document(s) 8.8 4.0-10.0 WHITE BLOOD COUNT eCW1 ([facility]) 5.31 4.30-6.10 RED BLOOD COUNT eCW1 ([facility]) 89.3 80.0-96.0 MEAN CORPUSCULAR VOLUME e CW1 ([facility]) 47.4 42.0-52.0 HEMATOCRIT eCW1 ([facility]) 15.8 13.5-17.5 HEMOGLOBIN eCW1 ([facility]) 29.8 27.0-33.0 MEAN CORPUSCULAR HEMOGLOB IN eCW1 ([facility]) 286 150-450 PLATELET COUNT, AUTOMATED eCW1 ([facility]) 33.3 32.0-36.5 MEAN CORPUSCULAR HGB CONC eCW1 ([facility]) 12.5 11.5-14.5 RED CELL DISTRIBUTION WID TH eCW1 ([facility]) 7.3 2.0-8.0 MONO % eCW1 ([facility]) 28.7 24.0-44.0 LYMPH % eCW1 ([facility]) 61.9 36.0-66.0 NEUTROPHILS % eCW1 ([facility]) 1.3 0.0-3.0 EOS % eCW1 ([facility]) 0.3 0.0-1.0 BASO % eCW1 ([facility]) 5.5 1.5-8.5 NEUTROPHILS # eCW1 ([facility]) 2.5 1.5-5.0 LYMPH # eCW1 ([facility]) 0.0 0.0-0.2 BASO # eCW1 ([facility]) 0.1 0.0-0.5 EOS # eCW1 ([facility]) 0.6 0.0-0.8 MONO # eCW1 ([facility]) Procedure Social History Code Duration Value Status Description Data Source(s ) Smoking 04/07/2021 12:00:00 AM EDT Current Smoker completed Curre nt Smoker eCW1 ([facility]) Smoking 04/07/2021 12:00:00 AM EDT Current Smoker completed Curre nt Smoker eCW1 ([facility]) Smoking 04/07/2021 12:00:00 AM EDT Current Smoker completed Curre nt Smoker eCW1 ([facility]) Smoking 04/07/2021 12:00:00 AM EDT Current Smoker completed Curre nt Smoker eCW1 ([facility]) Smoking 04/07/2021 12:00:00 AM EDT Current Smoker completed Curre nt Smoker eCW1 ([facility]) Smoking 04/07/2021 12:00:00 AM EDT Current Smoker completed Curre nt Smoker eCW1 ([facility]) Smoking 04/07/2021 12:00:00 AM EDT Current Smoker completed Curre nt Smoker eCW1 ([facility]) Smoking 03/31/2021 12:00:00 AM EDT Current Smoker completed Curre nt Smoker eCW1 ([facility]) Vital Signs ID Date Data Source UNK Name Value Range Interpretation Code Description Data Source(s) Body weight 159 [lb_av] 159 [lb_av] eCW1 ([facility]) Body weight 72.12 kg 72.12 kg eCW1 ([facility]) Body height 63 [in_i] 63 [in_i] eCW1 ([facility]) Body mass index (BMI) [Ratio] 28.16 kg/m2 28.16 kg/m2 eCW1 ([facility]) Heart rate 121 /min 121 /min eCW1 ([facility]) Respiratory rate 18 /min 18 /min eCW1 ([facility]) Body temperature 98.3 [degF] 98.3 [degF] eCW1 ( [facility]) Systolic blood pressure 136 mm[Hg] 136 mm[Hg] e CW1 ([facility]) Diastolic blood pressure 80 mm[Hg] 80 mm[Hg] eCW1 ([facility]) Body weight 159 [lb_av] 159 [lb_av] eCW1 ([facility]) Body weight 72.12 kg 72.12 kg eCW1 ([facility]) Body height 63 [in_i] 63 [in_i] eCW1 ([facility]) Body mass index (BMI) [Ratio] 28.16 kg/m2 28.16 kg/m2 eCW1 ([facility]) Heart rate 116 /min 116 /min eCW1 ([facility]) Respiratory rate 18 /min 18 /min eCW1 ([facility]) Body temperature 97.7 [degF] 97.7 [degF] eCW1 ( [facility]) Systolic blood pressure 132 mm[Hg] 132 mm[Hg] e CW1 ([facility]) Diastolic blood pressure 74 mm[Hg] 74 mm[Hg] eCW1 ([facility]) Systolic blood pressure 153 mm[Hg] 153 mm[Hg] M EDENT ([facility]) Heart rate 96 /min 96 /min MEDENT ([facility]) Oxygen saturation in Arterial blood by Pulse oximetry 99 % 99 % MEDENT ([facility], [facility]) Respiratory rate 14 /min 14 /min MEDENT ( [facility]) Body temperature 98.6 [degF] 98.6 [degF] MEDENT ([facility], [facility]) Body height 63 [in_i] 63 [in_i] MEDENT ([facility]) 5'3" Body weight 160.00 [lb_av] 160.00 [lb_av] MEDEN T ([facility], [facility]) Body mass index (BMI) [Ratio] 28.3 kg/m2 28.3 k g/m2 MEDENT ([facility]) Diastolic blood pressure 90 mm[Hg] 90 mm[Hg] MEDENT ([facility], [facility]) Patient Treatment Plan of Care Planned Activity Planned Date Details Description Data Source (s) aripiprazole 5 MG Oral Tablet [Abilify] 04/07/2021 12:00:00 AM EDT eCW1 ([facility]) aripiprazole 5 MG Oral Tablet [Abilify] 04/07/2021 12:00:00 AM EDT eCW1 ([facility]) aripiprazole 5 MG Oral Tablet [Abilify] 04/07/2021 12:00:00 AM EDT eCW1 ([facility]) aripiprazole 5 MG Oral Tablet [Abilify] 04/07/2021 12:00:00 AM EDT eCW1 ([facility]) aripiprazole 5 MG Oral Tablet [Abilify] 04/07/2021 12:00:00 AM EDT eCW1 ([facility]) aripiprazole 5 MG Oral Tablet [Abilify] 04/07/2021 12:00:00 AM EDT eCW1 ([facility]) aripiprazole 5 MG Oral Tablet [Abilify] 04/07/2021 12:00:00 AM EDT eCW1 ([facility]) Hydroxyzine Hydrochloride 25 MG Oral Tablet 03/31/2021 12:00:00 AM EDT eCW1 ([facility])
[2021-05-24 21:39] LABS: ALBUMIN 3.8 GM/DL (3.2-5.2); BILIRUBIN,DIRECT 0.1 MG/DL (0.0-0.2); BILIRUBIN,TOTAL 0.4 MG/DL (0.2-1.0); TOTAL PROTEIN 7.3 GM/DL (6.4-8.2)
--- NOTE | 2021-05-24 21:55 | REPVR ---
PROCEDURE INFORMATION: Exam: XR Nose to Rectum For Foreign Body, Child, 1 View Exam date and time: 05/24/2021 8:11 PM Age: 45 years old Clinical indication: Symptoms: PT thinks something stuck in his throat; Additional info: PT thinks he has something stuck in his throat TECHNIQUE: Imaging protocol: XR of the nose to rectum for foreign body of a child, 1 view. COMPARISON: No relevant prior studies available. FINDINGS: Lungs: Clear lungs. Gastrointestinal tract: Nonobstructed bowel gas pattern. Soft tissues: No radiopaque foreign bodies visualized. IMPRESSION: No radiopaque foreign bodies visualized. Electronically signed by: Carlos Treviño On 05/24/2021 21:55:09 PM
[2021-05-24 22:39] VITALS: BP 133/84
== END 2021-05-24 22:43 | disposition home or self-care (01) ==
LOC: M ED 19:16
DX: F44.9 Dissociative and conversion disorder, unspecified (principal); F41.9 Anxiety disorder, unspecified; E11.65 Type 2 diabetes mellitus with hyperglycemia